=== PATIENT | male | born 1995 | race Caucasian/White ===

== ENCOUNTER 2020-02-15 09:17 | Emergency (ER) | payer OTHER ==
[~2020-02-15] VITALS: Ht 172.7 cm; Wt 60.6 kg
[2020-02-15] MEDS ORDERED: TRAMADOL 50 MG50 MG PO (09:52)
[2020-02-15] MEDS ORDERED: AMOXICILLIN 50500 MG PO (09:52)
[2020-02-15 09:58] VITALS: BP 134/71
== END 2020-02-15 09:58 | disposition home or self-care (01) ==
LOC: M.ERS 09:17
DX: K02.9 Dental caries, unspecified (principal); J45.909 Unspecified asthma, uncomplicated